=== PATIENT | male | born 1935 | race Caucasian/White ===

== ENCOUNTER 2016-08-27 02:58 | Emergency (ER) | payer MEDICARE, OTHER ==
--- NOTE | ~2016-08-27 | CT71 ---
[facility] A Service [facility] RADIOLOGY TEXT RESULTS PATIENT: ROSEMARIE MCNAIR LOCATION: [facility] : 35 UNIT #: [id number] AGE: [address]: Kishor Sinclair MD SEX: M ORDER DR: [id number] [facility]. [place], [place] [address] [id number] E MR#: [id number] #: [id number] NAME: ROSEMARIE MCNAIR. : 1935 SEX: M STUDY DATE/TIME: 08/27/2016 2:42 UNIT: [facility] ROOM: STUDY DESCRIPTION: CT Head Wo Contrast Attending Physician: Kishor Sinclair M.D. Ordering Physician: Kishor Sinclair M.D. Primary Care Physician: Nova Pandya M.D. MEDICAL IMAGING REPORT This report is preliminary unless electronic signature is present EXAM CT head, noncontrast, 08/27/2016 HISTORY 81-year-old male in the ED after a fall tonight. He complains of dizziness. Confusion. History of dementia. TECHNIQUE CT examination of the head performed without IV contrast. This CT exam was performed with one or more of the following radiation dose reduction techniques: automatic exposure control, adjustment of mA and/or kV according to patient size, and iterative reconstruction. FINDINGS No acute intracranial abnormality is demonstrated. No visible skull fracture. Mild generalized cerebral cortical atrophy. Mild diffuse low-attenuation white matter changes are nonspecific but most likely related to chronic small vessel disease. This is stable since 12/22/2014. No evidence of intracranial hemorrhage, mass, mass effect, acute cerebral edema or progressive ventricular enlargement. IMPRESSION 1. No acute intracranial abnormality. 2. Diffuse chronic changes as noted above. 3. No change since 12/22/2014.. [facility] A Service [facility] RADIOLOGY TEXT RESULTS PATIENT: ROSEMARIE MCNAIR LOCATION: [facility] : 35 UNIT #: [id number] AGE: [address]: Kishor Sinclair MD SEX: M ORDER DR: Dictated by... Josef Alvarez M.D. THIS IS AN ELECTRONICALLY VERIFIED REPORT Josef Alvarez M.D. at 08/27/2016 5:58 AM ALEXANDER/deisy TD: 08/27/2016 04:20 JOB #: [id number] MEDICAL IMAGING REPORT Page 1 of 1 COPY
--- NOTE | ~2016-08-27 | CR72 ---
[facility] A Service of [facility] RADIOLOGY TEXT RESULTS PATIENT: ROSEMARIE MCNAIR LOCATION: [facility] : 35 UNIT #: [id number] AGE: [address]: Kishor Sinclair MD SEX: M ORDER DR: [id number] [facility] [address] [place], [place] [address] [id number] E MR#: [id number] Acc #: [id number] NAME: ROSEMARIE MCNAIR. : 1935 SEX: M STUDY DATE/TIME: 08/27/2016 2:03 UNIT: [facility] ROOM: STUDY DESCRIPTION: CR Chest Single View Portable Attending Physician: Kishor Sinclair M.D. Ordering Physician: Kishor Sinclair M.D. Primary Care Physician: Nova Pandya M.D. MEDICAL IMAGING REPORT This report is preliminary unless electronic signature is present EXAM AP portable chest, 08/27/2016 HISTORY 81-year-old male in the ED complaining of chest pain, shortness of air and dizziness after a fall tonight. TECHNIQUE AP portable upright chest x-ray. FINDING The exam shows no active disease in the chest. Postop heart surgery including MVR. Heart size and pulmonary vascularity are within normal limits. The lungs appear clear. No visible pulmonary infiltrate, pneumothorax or pleural effusion. No change since 05/04/2016. IMPRESSION No active disease. No change since 05/04/2016. Dictated by... Josef Alvarez M.D. THIS IS AN ELECTRONICALLY VERIFIED REPORT Josef Alvarez M.D. at 08/27/2016 4:07 AM ALEXANDER/deisy TD: 08/27/2016 03:52 JOB #: [id number] MEDICAL IMAGING REPORT Page 1 of 1 COPY
--- NOTE | ~2016-08-27 | EKG ---
PATIENT: ROSEMARIE MCNAIR UNIT #: [id number] Ventricular Rate: 49 BPM Atrial Rate: 197 BPM QRS Duration: 122 ms Q-T Interval: 428 ms QTC Calculation(Bezet): 386 ms P [place]: -86 degrees Calculated R [place]: -55 degrees Calculated T [place]: 62 degrees Diagnosis Line: Atrial flutter with variable conduction Diagnosis Line: Left anterior fascicular block Diagnosis Line: Nonspecific ST abnormality Diagnosis Line: Abnormal ECG Diagnosis Line: No previous ECGs available Diagnosis Line: Confirmed by MATT TELLEZ MD ([id number]) on 08/27/2016 Diagnosis Line: 10:13:46 PM INTERPRETING MD: ROSALINDA CHISHOLM
[2016-08-27 02:20] LABS: BASOPHIL% 0.8 % (0-2.5); EOSINOPHIL# 0.1 X10e3 (0-0.7); HEMATOCRIT 41.4 % (38.0-50.0); HEMOGLOBIN 14.3 gm/dL (13.0-16.0); LYMPHOCYTE# 1.7 X10e3 (1.0-3.5); LYMPHOCYTE% 31.8 % (17.0-45.0); MEAN CELL VOLUME 90.8 FL (83-96); MEAN CORPUSCULAR HEMOGLOBIN 31.5 PG (28-34); MEAN CORPUSCULAR HGB CONC 34.6 g/dL (30-36); MEAN PLATELET VOLUME 7.5 FL (6.5-11.5); MONOCYTE# 0.4 X10e3 (0-1.0); MONOCYTE% 7.5 % (3.0-12.0); NEUTROPHIL% 57.9 % (40-75); PLATELET COUNT 132 X10e3 (140-420); RED BLOOD COUNT 4.55 X10e (3.90-5.60); RED CELL DISTRIBUTION WIDTH 13.8 % (11.0-15.5); WHITE BLOOD COUNT 5.2 X10e3 (4.0-10.5)
[2016-08-27 02:22] LABS: DIFF IND NO
[2016-08-27 02:48] LABS: ALBUMIN SERUM 4.1 g/dL (3.5-5.0); BILIRUBIN, DIRECT 0.3 mg/dL (0.0-0.2); BILIRUBIN,INDIRECT 0.9 mg/dL (0.0-0.9); BILIRUBIN,TOTAL 1.2 mg/dL (0.2-2.0); BUN/CREATININE RATIO 14.16; CALCIUM SERUM 9.2 mg/dL (8.4-10.2); CREATININE SERUM 1.2 mg/dL (0.6-1.4); GLOM FILT RATE Estimated 56.4 mL/min (>60); POTASSIUM 3.9 mmol/L (3.5-5.1); PROTEIN TOTAL SERUM 7.1 g/dL (6.0-8.3)
[2016-08-27 02:55] LABS: POC - CKMB <1.0 ng/mL (0.0-7.9); POC - TROPONIN <0.05 ng/mL (<=0.05)
[~2016-08-27 02:58] MED LIST: ACETAMINOPHEN650 M1 PO; ACETAMINOPHEN650 M4 PO; ALDACTONE25 MG PO; AMLODIPINE BESYL5 MG PO; ARICEPT23 MG PO; ARICEPT5 M1 PO; ASPIRIN81 M1 PO; AVAPRO150 MG PO; BUSPIRONE HCL7.5 MG PO; CLARITIN R10 MG REDI PO; CLARITIN10 M1 PO; CORDARONE200 M1 PO; COREG12.5 MG PO; COREG6.25 MG PO; COUMADIN2.5 MG PO; COUMADIN5 MG PO; FUROSEMIDE40 MG PO; LANOXIN PO; LANOXIN125 MCG PO; LASIX20 MG PO; LEVAQUIN750 MG PO; LOC PO; LOPID600 MG PO; LOVENOX80 MG/0.8 SUBQ; METOPROLOL TAR25 MG PO; MIRTAZAPINE30 MG PO; SOTALOL AF80 M1 PO; TETRACYCLINE PO; XARELTO15 MG PO; ZESTRIL5 MG PO; ZOCOR20 MG PO
[2016-09-24] MEDS ORDERED: CENTRUM SILVER1 EAC4 (14:10)
[2016-09-24] MEDS ORDERED: PANTOPRAZOLE SO40 MG PO (16:16)
== END 2016-08-27 04:25 | disposition home or self-care (01) ==
LOC: CED 02:58
PROVIDERS: Emergency Medicine
DX: R42 Dizziness and giddiness (principal); R53.83 Other fatigue; R53.81 Other malaise; I48.92 Unspecified atrial flutter; I50.9 Heart failure, unspecified; F17.200 Nicotine dependence, unspecified, uncomplicated
CPT/HCPCS: 36415; 70450; 71010; 80048; 80076; 80162; 82553; 83880; 84484; 85025; 93005; 99284

== ENCOUNTER → 2016-09-12 | Outpatient (CLI) | payer MEDICARE, OTHER ==
[~2016-09-12] MED LIST changes: +CENTRUM SILVER1 EAC4; +PANTOPRAZOLE SO40 MG PO
--- NOTE | ~2016-09-12 | CR97 ---
[facility] A Service [facility] RADIOLOGY TEXT RESULTS PATIENT: ROSEMARIE MCNAIR LOCATION: [facility] : 35 UNIT #: [id number] AGE: [address]: Nova Pandya MD SEX: M ORDER DR: [id number] [facility]. [place], [place] [address] [id number] O MR#: [id number] Acc #: [id number] NAME: ROSEMARIE MCNAIR. : 1935 SEX: M STUDY DATE/TIME: 09/12/2016 8:09 UNIT: [facility] ROOM: STUDY DESCRIPTION: CR Esophagram Attending Physician: Nova Pandya M.D. Referring Physician: Nova Pandya M.D. Ordering Physician: Nova Pandya M.D. Primary Care Physician: Nova Pandya M.D. MEDICAL IMAGING REPORT This report is preliminary unless electronic signature is present EXAM Barium esophagram INDICATIONS An 81-year-old male with a knot in throat and dysphagia for 1 year. Fluoroscopy time 1.6 minutes. 9 fluoroscopic images were taken. FINDINGS Evaluation of the cervical esophagus demonstrates a small cricopharyngeal bar. There is no evidence of any aspiration or laryngeal penetration. Degenerative changes are seen in the cervical spine. Bilateral carotid calcifications are noted. Evaluation of the thoracic esophagus demonstrates normal thoracic esophageal course and caliber. There is a tiny sliding hiatal hernia. There is no evidence for reflux. IMPRESSION 1. 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 2. Tiny sliding hiatal hernia. 3. No evidence for reflux Dictated by... Obi Dhaliwal M.D. THIS IS AN ELECTRONICALLY VERIFIED REPORT Obi Dhaliwal M.D. at 09/13/2016 4:49 PM GAYLE/leslye TD: 09/12/2016 20:18 [facility] A Service [facility] RADIOLOGY TEXT RESULTS PATIENT: ROSEMARIE MCNAIR LOCATION: [facility] #: [id number] : 35 UNIT #: [id number] AGE: [address]: Nova Pandya MD SEX: M ORDER DR: JOB #: [id number] MEDICAL IMAGING REPORT Page 1 of 1 COPY
== END | disposition home or self-care (01) ==
LOC: CRAD 07:41
DX: R13.11 Dysphagia, oral phase (principal); K44.9 Diaphragmatic hernia without obstruction or gangrene
CPT/HCPCS: 74220

== ENCOUNTER → 2016-09-24 | Day surgery (SDC) | payer MEDICARE, OTHER ==
--- NOTE | ~2016-09-24 | OR ---
Unit #: [id number] #: [id number] Patient: ROSEMARIE MCNAIR [id number] [address] [place], [place] [address] [id number] O MR#: [id number] NAME: ROSEMARIE MCNAIR. ROOM: Date of Procedure: 09/24/2016 Admission Date: 09/24/2016 Surgeon: Robbin Valente M.D. : 1935 Attending Physician: Robbin Valente M.D. Referring Physician: Robbin Valente M.D. Primary Care Physician: Nova Pandya M.D. OPERATIVE REPORT PREOPERATIVE DIAGNOSES Dysphagia and weight loss. The patient also has a family history of colon cancer, his brother at the age of 66 from colon cancer. The patient, however, was scheduled to have an outpatient colonoscopy at the same time, but he diffuse to do a colonoscopy prep, and therefore, an upper endoscopy is being done today. PROCEDURES PERFORMED Upper gastrointestinal endoscopy and biopsy. POSTOPERATIVE DIAGNOSES 1. The patient had distal confluent ulcerative grade 2 to 3 esophagitis. 2. A single nodule in the prepyloric antral area. The overall appearances were benign. 3. Rest of the examination up to third part of duodenum was normal. 4. Mild antral gastritis. 5. Rest of the examination up to third part of the duodenum was normal. Biopsies obtained from the antrum for CLOtest. In addition, biopsies also obtained from the antral gastric nodule. These were sent for histology. RECOMMENDATIONS The patient restarted on pantoprazole 40 mg p.o. daily. A considerable discussion was held with the patient and his family regarding consideration of colonoscopy, but the patient at the present time does not wish to undergo it. He will be followed up in the office in 8 weeks' time. SEDATION USED MAC. DESCRIPTION OF PROCEDURE Following detailed explanation of the potential risks and complications of an upper endoscopy, namely perforation, bleeding, and complications related to sedation, the patient was brought to GI lab and laid in the left lateral decubitus position. Lubricated tip of the Olympus video upper endoscope was passed through the bite block into the proximal esophagus under direct vision. The entire esophageal mucosa was examined. The patient was noted to have distal grade 2 erosive esophagitis. There being no stricture or ring present. The scope was then advanced in the gastric cavity and the latter was insufflated. Mucosa of the fundus, body, and antrum was examined. Prepyloric antral erythema erosion was noted indicating focal antral gastritis. In addition a single nodule was seen posteriorly in the prepyloric antral area. The overall appearances Unit #: [id number] #: [id number] Patient: ROSEMARIE MCNAIR were however benign. Pylorus was intubated with visualization of the normal duodenal bulb and second and third part of the duodenum. Upon withdrawal and retroflexion, incisura, cardia, and greater curve examined and biopsy obtained from the antrum for CLOtest. The biopsies also obtained from the gastric antral nodule. The scope was withdrawn in the distal esophagus. Biopsies also obtained from the distal esophageal mucosa and sent for histology. The entire esophageal mucosa was examined all the way up to pharynx. No additional findings were noted. The patient tolerated the procedure without any postprocedure complications. Dictated by... Salbador Rodriguez/carmelina TD: 09/24/2016 22:52 JOB #: [id number] CC: Nova Pandya M.D. OPERATIVE REPORT Page 1 of 1 X Robbin Valente MD X PROCEDURE OPERATIVE NOTE
== END | disposition home or self-care (01) ==
LOC: COPS 13:43
DX: K21.0 Gastro-esophageal reflux disease with esophagitis (principal); K29.50 Unspecified chronic gastritis without bleeding; F17.210 Nicotine dependence, cigarettes, uncomplicated; Z80.0 Family history of malignant neoplasm of digestive organs; Z95.1 Presence of aortocoronary bypass graft; Z95.5 Presence of coronary angioplasty implant and graft; Z79.01 Long term (current) use of anticoagulants; Z79.899 Other long term (current) drug therapy
CPT/HCPCS: 87077; 88305; 88312

== ENCOUNTER → 2017-01-09 | Outpatient (CLI) | payer MEDICARE, OTHER ==
[2017-01-09 12:21] LABS: BASOPHIL% 0.6 % (0-2.5); EOSINOPHIL# 0.2 X10e3 (0-0.7); EOSINOPHIL% 3.8 % (0.0-7.0); HEMATOCRIT 39.1 % (38.0-50.0); HEMOGLOBIN 13.6 gm/dL (13.0-16.0); MEAN CELL VOLUME 88.5 FL (83-96); MEAN CORPUSCULAR HEMOGLOBIN 30.8 PG (28-34); MEAN CORPUSCULAR HGB CONC 34.8 g/dL (30-36); MEAN PLATELET VOLUME 7.4 FL (6.5-11.5); MONOCYTE# 0.2 X10e3 (0-1.0); MONOCYTE% 5.8 % (3.0-12.0); NEUTROPHIL# 2.6 X10e3 (1.5-7.1); NEUTROPHIL% 64.8 % (40-75); PLATELET COUNT 131 X10e3 (140-420); RED BLOOD COUNT 4.41 X10e (3.90-5.60); WHITE BLOOD COUNT 4.1 X10e3 (4.0-10.5)
[2017-01-09 12:30] LABS: DIFF IND NO
[2017-01-09 12:45] LABS: ALBUMIN SERUM 4.2 g/dL (3.5-5.0); BILIRUBIN,TOTAL 0.6 mg/dL (0.2-2.0); CALCIUM SERUM 9.4 mg/dL (8.4-10.2); GLOM FILT RATE Estimated 70.3 mL/min (>60); POTASSIUM 3.6 mmol/L (3.5-5.1); PROTEIN TOTAL SERUM 7.6 g/dL (6.0-8.3)
== END | disposition home or self-care (01) ==
LOC: CLAB 11:54
PROVIDERS: Nurse Practitioner
DX: D64.9 Anemia, unspecified (principal)
CPT/HCPCS: 36415; 80053; 85025